=== PATIENT | male | born 1990 | race African-American/Black ===

== ENCOUNTER → 2017-06-26 | Outpatient (CLI) | payer MEDICAID, SELFPAY | PROVIDERS: Visit Provider Internal Medicine Adolescent Medicine | DX: N41.0 Acute prostatitis (principal); N52.9 Male erectile dysfunction, unspecified; K92.1 Melena | CPT/HCPCS: 36415; 80053; 81001; 82607; 84443; 85025; 87086; G0103 ==

== ENCOUNTER 2017-07-28 16:48 | Emergency (ER) | payer MEDICAID, SELFPAY ==
[2017-07-28 16:49] VITALS: BP 148/93; PULSE 84; RESP 20; TEMP 36.7; O2SAT 96; BMI 29.8
--- NOTE | 2017-07-28 16:58 | XR_ITS ---
XR chest 2V HISTORY: ITS.REASON: chest pain ORDERING PHYSICIAN: Shauna Pham MD PATIENT AGE: 27 years COMPARISON: None available FINDINGS: The cardiomediastinal silhouette and pulmonary vascularity are within normal limits. The lungs are clear without infiltrates, suspicious nodules, or pleural effusions. No acute bony abnormalities. IMPRESSION: Negative chest, no acute finding
[2017-07-28 17:15] LABS: Basophils % 0.3 % (0.1-2.0); Eosinophils # 0.1 K/mm3 (0.0-0.4); Eosinophils % 1.2 % (0.1-12.0); Hematocrit 52.1 % (42.0-52.0); Hemoglobin 17.5 g/dL (14.1-18.0); Lymphocytes # 1.7 K/mm3 (0.7-4.5); Lymphocytes % 14.7 K/mm3 (10-50); Mean Corpuscular HGB Conc 33.6 g/dL (31.8-35.4); Mean Corpuscular Hemoglobin 28.9 pg (27.0-31.2); Mean Platelet Volume 7.9 fl (7.4-10.4); Monocytes # 0.5 K/mm3 (0.1-1.0); Monocytes % 4.1 % (1.7-9.3); Neutrophils # 9.3 K/mm3 (1.8-7.8); Neutrophils % 79.8 % (37.0-80.0); Platelet Count 189 K/mm3 (142-424); Red Blood Count 6.06 M/mm3 (4.60-6.20); Red Cell Distribution Width 12.6 % (11.5-17.5); White Blood Count 11.7 K/mm3 (4.8-10.8)
--- NOTE | 2017-07-28 17:16 | HMH.EDCP ---
ED Disposition Clinical Impression: Pleurisy, Atypical chest pain Disposition: Home, Self-Care Condition on Discharge: Good Additional Instructions: Patient symptoms resolved after taking an aspirin. No more chest pain during his ED stay. I reviewed his EKG with Dr. Monk who will believe that the EKG is an early repolarization repolarization. The patient remained chest pain-free underwent a second negative troponin was discharged in stable condition with the following instructions below: 1- take daily aspirin.. 2- use additional motrin if needed. 3- stop smoking. 4- call Dr Monk for an outpatient stress test in am. 5- return if needed or for any new sx. 6- The patient verbalized understanding of the above DC plan and said he had these trademill stress tests before. - Critical Care Critical Care Time: No Attestation: On , the high probability of a clinically significant, sudden or life threatening deterioration of the following system(s) required my full and direct attention, intervention and personal management. The time I documented below is in addition to time spent performing reported procedures but includes the following listed in this critical care notation. Medical Decision Making - Medical Records Medical records reviewed: Yes: I reviewed the patient's medical records. Vital Signs: 07/28/17 16:49 07/28/17 18:49 Temperature 98.0 F 98.0 F Temperature Source Oral Oral Pulse Rate [Right Radial] 84 86 Respiratory Rate 20 20 Blood Pressure [Right Arm] 148/93 165/83 Blood Pressure Mean [Right Arm] 111 110 Blood Pressure Source [Right Arm] Automatic Cuff Automatic Cuff Blood Pressure Position [Right Arm] Sitting Sitting 02 Sat by Pulse Oximetry 96 100 Oxygen Delivery Method Room Air Room Air - Lab Data Lab Results 07/28/17 17:00: WBC 11.7 H, RBC 6.06, Hgb 17.5, Hct 52.1 H, MCV 86.0, MCH 28.9, MCHC 33.6, RDW 12.6, Plt Count 189, MPV 7.9, Neut % (Auto) 79.8, Lymph % (Auto) 14.7, Cecil % (Auto) 4.1, Eos % (Auto) 1.2, Baso % (Auto) 0.3, Neut # (Auto) 9.3 H, Lymph # (Auto) 1.7, Cecil # (Auto) 0.5, Eos # (Auto) 0.1, Baso # (Auto) 0.0 07/28/17 17:00: Sodium 140, Potassium 3.6, Chloride 104, Carbon Dioxide 29, Anion Gap 10.6, BUN 9, Creatinine 0.91, Estimated Creat Clear 175, Estimated GFR 102, Est GFR ( Amer) 123, Glucose 92, Calcium 9.1, Total Bilirubin 0.7, AST 21, ALT 36, Alkaline Phosphatase 139 H, Total Protein 7.6, Albumin 3.9, Globulin 3.7 H, Albumin/Globulin Ratio 1.1 07/28/17 17:00: Total Creatine Kinase 99, CK-MB (CK-2) < 0.5, CK-MB (CK-2) Rel Index 0.5, Troponin I < 0.02 07/28/17 17:00: D-Dimer < 100 07/28/17 17:00: B-Natriuretic Peptide 5 07/28/17 17:00: ESR 8 Result diagrams: 07/28/17 17:00 07/28/17 17:00 Orders (Tests/Meds): ED MEDICATIONS Discontinued Medications Generic Name Dose Route Start Last Admin Trade Name Melissa PRN Reason Stop Dose Admin Aspirin 324 mg 07/28/17 17:02 07/28/17 17:04 Aspirin 81mg Chewable Tablet PO 07/28/17 17:03 324 mg ONCE ONE Administration ORDERS Category Date Time Status Troponin I Stat Lab 07/28/17 19:41 Received 12-lead EKG Request [ECG Request by /Jessica] Stat Y 07/28/17 16:58 Ordered - Radiology Data #1 Image(s): Chest Image Reviewed: Yes I have reviewed radiologist's interpretation - ECG Data Tracing #1 EKG is normal sinus rhythm 85/min. Early repolarization, nonspecific ST and T-wave change, there is no acute findings on the EKG. I reviewed the EKG with the drive man Dr. Monk who agreed with the above report. ECG initial impression date: 07/28/17 - Cade Inquiry Pt receiving controlled substance: No Cade was queried for this patient: No Medical Decision Making Narrative: The patient underwent negative cardiac enzymes for myocardial infarction, he ruled out for pulmonary embolism with d-dimer. He remained stable Chest Pain HPI - General Chief Compla
--- NOTE | 2017-07-28 17:21 | ED_ITS ---
ED Disposition Clinical Impression: Pleurisy, Atypical chest pain Disposition: Home, Self-Care Condition on Discharge: Good Additional Instructions: Patient symptoms resolved after taking an aspirin. No more chest pain during his ED stay. I reviewed his EKG with Dr. Monk who will believe that the EKG is an early repolarization repolarization. The patient remained chest pain- free underwent a second negative troponin was discharged in stable condition with the following instructions below: 1- take daily aspirin.. 2- use additional motrin if needed. 3- stop smoking. 4- call Dr Monk for an outpatient stress test in am. 5- return if needed or for any new sx. 6- The patient verbalized understanding of the above DC plan and said he had these trademill stress tests before. - Critical Care Critical Care Time: No Attestation: On , the high probability of a clinically significant, sudden or life threatening deterioration of the following system(s) required my full and direct attention, intervention and personal management. The time I documented below is in addition to time spent performing reported procedures but includes the following listed in this critical care notation. Medical Decision Making - Medical Records Medical records reviewed: Yes: I reviewed the patient's medical records. Vital Signs: 07/28/17 16:49 07/28/17 18:49 Temperature 98.0 F 98.0 F Temperature Source Oral Oral Pulse Rate [Right Radial] 84 86 Respiratory Rate 20 20 Blood Pressure [Right Arm] 148/93 165/83 Blood Pressure Mean [Right Arm] 111 110 Blood Pressure Source [Right Arm] Automatic Cuff Automatic Cuff Blood Pressure Position [Right Arm] Sitting Sitting 02 Sat by Pulse Oximetry 96 100 Oxygen Delivery Method Room Air Room Air - Lab Data Lab Results 07/28/17 17:00: WBC 11.7 H, RBC 6.06, Hgb 17.5, Hct 52.1 H, MCV 86.0, MCH 28.9, MCHC 33.6, RDW 12.6, Plt Count 189, MPV 7.9, Neut % (Auto) 79.8, Lymph % (Auto) 14.7, [place] % (Auto) 4.1, Eos % (Auto) 1.2, Baso % (Auto) 0.3, Neut # (Auto) 9.3 H, Lymph # (Auto) 1.7, [place] # (Auto) 0.5, Eos # (Auto) 0.1, Baso # (Auto) 0.0 07/28/17 17:00: Sodium 140, Potassium 3.6, Chloride 104, Carbon Dioxide 29, Anion Gap 10.6, BUN 9, Creatinine 0.91, Estimated Creat Clear 175, Estimated GFR 102, Est GFR ( Amer) 123, Glucose 92, Calcium 9.1, Total Bilirubin 0.7, AST 21, ALT 36, Alkaline Phosphatase 139 H, Total Protein 7.6, Albumin 3.9 , Globulin 3.7 H, Albumin/Globulin Ratio 1.1 07/28/17 17:00: Total Creatine Kinase 99, CK-MB (CK-2) < 0.5, CK-MB (CK-2) Rel Index 0.5, Troponin I < 0.02 07/28/17 17:00: D-Dimer < 100 07/28/17 17:00: B-Natriuretic Peptide 5 07/28/17 17:00: ESR 8 Result diagrams: 07/28/17 17:00 07/28/17 17:00 Orders (Tests/Meds): ED MEDICATIONS Discontinued Medications Generic Name Dose Route Start Last Admin Trade Name Freq PRN Reason Stop Dose Admin Aspirin 324 mg 07/28/17 17:02 07/28/17 17:04 Aspirin 81mg Chewable Tablet PO 07/28/17 17:03 324 mg ONCE ONE Administration ORDERS Category Date Time Status Troponin I Stat Lab 07/28/17 19:41 Received 12-lead EKG Request [ECG Request by /Jessica] Stat Y 07/28/17 16:58 Ordered - Radiology Data #1 Image(s): Chest Image Reviewed: Yes I have reviewed radiologist's interpretation
[2017-07-28 17:28] LABS: Alanine Aminotransferase 36 U/L (12-78); Albumin Level 3.9 gm/dL (3.4-5.0); Albumin/Globulin Ratio 1.1 (1.1-1.8); Alkaline Phosphatase 139 U/L (46-116); Anion Gap 10.6 mEq/L (5-15); Aspartate Amino Transferase 21 U/L (15-37); Bilirubin,Total 0.7 mg/dL (0.2-1.0); Blood Urea Nitrogen 9 mg/dL (7-18); Calcium 9.1 mg/dL (8.5-10.1); Carbon Dioxide 29 mmol/L (21.0-32.0); Chloride 104 mmol/L (98-107); Creatinine Clearance Estimated 175 mL/min (0-300); Creatinine,Serum 0.91 mg/dL (0.70-1.30); Estimated Glomerular Filt Rate 102 ml/min (>60); GFR (African American) 123 ML/MIN (>60); Globulin 3.7 gm/dl (1.3-3.2); Glucose 92 mg/dL (74-106); Potassium 3.6 mmoL/L (3.5-5.1); Sodium 140 mmol/L (136-145); Total Protein,Serum 7.6 gm/dL (6.4-8.2)
[2017-07-28 17:34] LABS: Creatine Kinase 99 U/L (39-308); Troponin I < 0.02 ng/ml (0.00-0.06)
[2017-07-28 17:36] LABS: CKMB Relative Index 0.5 U/L (0-4.0); Creatine Kinase MB < 0.5 mg/ml (0.0-3.6)
[2017-07-28 17:49] LABS: D-Dimer < 100 (0-400)
[2017-07-28 18:19] LABS: Erythrocyte Sedimentation Rate 8 mm/hr (0-15)
[2017-07-28 18:49] VITALS: BP 165/83; PULSE 86; RESP 20; TEMP 36.7; O2SAT 100
[2017-07-28 20:05] LABS: Troponin I < 0.02 ng/ml (0.00-0.06)
== END 2017-07-28 20:20 | disposition home or self-care (01) ==
PROVIDERS: Emergency Provider Emergency Medicine; Family Provider Emergency Medicine; PCP Internal Medicine Adolescent Medicine
DX: R07.89 Other chest pain (principal); F17.290 Nicotine dependence, other tobacco product, uncomplicated
CPT/HCPCS: 71046; 80053; 82550; 82553; 83880; 84484; 85025; 85378; 85651; 93005; 93041; 99283

== ENCOUNTER 2017-08-06 09:19 | Day surgery (SDC) | payer MEDICAID, SELFPAY ==
[2017-08-06] VITALS (12 sets, daily range): BP systolic 98–126; BP diastolic 52–89; PULSE 59–75; RESP 16–18; TEMP 36.6–36.9; O2SAT 91–100; BMI 29.8
--- NOTE | 2017-08-06 11:08 | HMH.SCOPE ---
- Procedure: Date: 08/06/17 Procedure Performed:: Colonoscopy Indications:: This is a 27-year-old gentleman with recent significant weight loss and intermittent bright blood per rectum. Performing Provider:: Jasper Bangura MD Referring Provider:: Dr. Rivero Sedation:: IV sedation with 13 mg of Versed and 200 mcg of fentanyl Procedure:: After informed consent was obtained, the patient was taken to the endoscopy suite. IV sedation ensued after he was transferred to the left lateral decubitus position. Digital rectal exam revealed no significant abnormality. The colonoscope was placed in position. The entire colon was evaluated. Bowel preparation was poor with large volume irrigation and suctioning used to somewhat improve visualization. In general, visualization was exceptionally limited. No obvious mass lesions or other abnormalities were noted. He did have mild hemorrhoidal cushions with no active bleeding and no thrombosis. The colonoscope was carefully removed and the patient was transferred to recovery. Findings:: Poor bowel preparation elicitation Very mild hemorrhoidal cushions Specimens:: None Recommendations:: Further evaluation regarding weight loss ongoing. Repeat colonoscopy at age 52 (earlier if deemed necessary). Complications:: Poor bowel preparation with limited visualization Estimated blood obtained (mL): 0
== END 2017-08-06 11:50 | disposition home or self-care (01) ==
LOC: OUTP 09:21
PROVIDERS: Family Provider Emergency Medicine; PCP Internal Medicine Adolescent Medicine; Visit Provider Surgery
PROC: 0DJD8ZZ Inspection of Lower Intestinal Tract, Via Natural or Artificial Opening Endoscopic (ICD-10-PCS; CPT 45378; principal; 2017-08-06 10:00)
DX: K62.5 Hemorrhage of anus and rectum (principal); K64.9 Unspecified hemorrhoids
CPT/HCPCS: 45378; 99152; 99153

== ENCOUNTER 2017-09-26 14:25 | Emergency (ER) | payer MEDICAID, SELFPAY ==
[2017-09-26 14:42] VITALS: BP 143/84; PULSE 76; RESP 20; TEMP 36.6; O2SAT 98; BMI 29.8
--- NOTE | 2017-09-26 14:57 | HMH.EDUTC ---
[facility] [place] Disposition Clinical Impression: Hand sprain Qualifiers: Encounter type: initial encounter Laterality: right Qualified Code(s): S63.91XA - Sprain of unspecified part of right wrist and hand, initial encounter Disposition: Home, Self-Care Condition on Discharge: Good Instructions: How To Perform RICE (Rest, Ice, Compress, Elevate), DI for Hand Pain Additional Instructions: *RICE, Rest the extremity, Ice 15-20 minutes 3-4 times daily, Compress- wear the ramon wrap as discussed as much as possible to help reduce swelling and pain, Elevate the extremity when at rest *Ramon wrap is for support and help control swelling, use it except in the shower. Be sure that is not to tight but not to loose either *Elevate when resting *Ibuprofen 600-800mg every 6-8 hours as needed for pain an inflammation. If need something more can take Tylenol in between doses of Ibuprofen to help Immediately follow up for new or worsening of symptoms, or no noticeable improvement over the next 3-5 days Prescriptions: Ibuprofen [Ibuprofen 600mg Tab] 600 mg PO Q6H PRN #20 tab PRN Reason: Moderate Pain Referrals: Jamil Rivero MD [Primary Care Provider] - (24-48 hours if no improvement in symptoms) Time of Disposition: 15:22 Medical Decision Making - Medical Records Medical records reviewed: Yes: I reviewed the patient's medical records. - Cade Inquiry Pt receiving controlled substance: No Cade was queried for this patient: No Vital Signs: 09/26/17 14:42 Temperature 97.9 F Temperature Source Oral Pulse Rate [Right Brachial] 76 Respiratory Rate 20 Blood Pressure [Right Arm] 143/84 Blood Pressure Mean [Right Arm] 103 Blood Pressure Source [Right Arm] Automatic Cuff Blood Pressure Position [Right Arm] Sitting 02 Sat by Pulse Oximetry 98 Oxygen Delivery Method Room Air Orders (Tests/Meds): ORDERS Category Date Time Status Hand XR right minimum 3 views [XR hand RT min 3V] Stat Exams 09/26/17 14:59 Ordered - Radiology Data #1 Image(s): Hand Image Reviewed: Yes I reviewed the patient's radiology image Preliminary Findings: No Fracture Seen Will have radiologist do official reading and if any different, call patient with finding [facility] [place] HPI - General Stated complaint: right hand pain Time Seen by Provider: 09/26/17 14:50 Mode of Arrival: Family Vehicle Source of Information: Patient Limitations: No Limitations Description of Symptoms (Recalled from Triage Doc. by RN): C/O PAIN IN RIGHT HAND X 3 DAYS FROM PREVIOUS INJURY HEENT Symptoms (Recalled from RN notes): No Resp Symptoms (Recalled from RN notes): No Skin Symptoms (Recalled from RN notes): No MS Symptoms (Recalled from RN notes): Yes Functional Status (Recalled from RN notes): N/A - History of Present Illness Provider Complaint: Patient state that he is suppose to have surgery on his right hand to repair damage that he previously done State that he doesn't recall hitting hand but about 3 days ago he began to have pain in his right hand just below wrist along the outside of hand up to pinky finger State that he is able to move it but when he applies pressure to the palm of his hand the pain is worse Denies known injury - Related Data Previous Rx's Medication Instructions Recorded Ibuprofen [Ibuprofen 600mg Tab] 600 mg PO Q6H PRN #20 tab 09/26/17 Allergies Allergy/AdvReac Type Severity Reaction Status Date / Time No Known Allergies Allergy Verified 08/19/17 14:10 - Worker's Comp Is this a Worker's Comp case?: No [facility] History I have reviewed the patient's past medical history: Yes Medical History: Reports:: Hypertension, Lung Disease Denies:: Diabetes Mellitus Type 1, Diabetes Mellitus Type 2, Internal Pacemaker, Seizures Other Surgeries: Yes: Cardiac Catheterization, Colonoscopy, Other (Heart Cath ). No: Pacemaker - Social History Smoking Status: Current every day smoker Tobacco Type: cigarettes Alcohol Intake: never Alcohol Intake Freq
--- NOTE | 2017-09-26 14:59 | XR_ITS ---
XR hand RT min 3V HISTORY: ITS.REASON: pain ORDERING PHYSICIAN: Elizabet Hernandes PATIENT AGE: 27 years COMPARISON: None FINDINGS: No fracture or dislocation. No lytic or blastic change. There is normal mineralization.. The joint spaces are well-preserved. No significant degenerative/arthritic changes. No erosive changes evident.. IMPRESSION: Negative, no acute finding
--- NOTE | 2017-09-26 15:02 | ED_ITS ---
[facility] [place] Clinical Impression: Hand sprain Qualifiers: Encounter type: initial encounter Laterality: right Qualified Code(s): S63.91XA - Sprain of unspecified part of right wrist and hand, initial encounter Disposition: Home, Self-Care Condition on Discharge: Good Instructions: How To Perform RICE (Rest, Ice, Compress, Elevate), DI for Hand Pain Additional Instructions: *RICE, Rest the extremity, Ice 15-20 minutes 3-4 times daily, Compress- wear the ramon wrap as discussed as much as possible to help reduce swelling and pain, Elevate the extremity when at rest *Ramon wrap is for support and help control swelling, use it except in the shower. Be sure that is not to tight but not to loose either *Elevate when resting *Ibuprofen 600-800mg every 6-8 hours as needed for pain an inflammation. If need something more can take Tylenol in between doses of Ibuprofen to help Immediately follow up for new or worsening of symptoms, or no noticeable improvement over the next 3-5 days Prescriptions: Ibuprofen [Ibuprofen 600mg Tab] 600 mg PO Q6H PRN #20 tab PRN Reason: Moderate Pain Referrals: Jamil Rivero MD [Primary Care Provider] - (24-48 hours if no improvement in symptoms) Time of Disposition: 15:22 Medical Decision Making - Medical Records Medical records reviewed: Yes: I reviewed the patient's medical records. - Cade Inquiry Pt receiving controlled substance: No Cade was queried for this patient: No Vital Signs: 09/26/17 14:42 Temperature 97.9 F Temperature Source Oral Pulse Rate [Right Brachial] 76 Respiratory Rate 20 Blood Pressure [Right Arm] 143/84 Blood Pressure Mean [Right Arm] 103 Blood Pressure Source [Right Arm] Automatic Cuff Blood Pressure Position [Right Arm] Sitting 02 Sat by Pulse Oximetry 98 Oxygen Delivery Method Room Air Orders (Tests/Meds): ORDERS Category Date Time Status Hand XR right minimum 3 views [XR hand RT min 3V] Stat Exams 09/26/17 14:59 Ordered - Radiology Data #1 Image(s): Hand Image Reviewed: Yes I reviewed the patient's radiology image Preliminary Findings: No Fracture Seen Will have radiologist do official reading and if any different, call patient with finding [facility] [place] - General Stated complaint: right hand pain Time Seen by Provider: 09/26/17 14:50 Mode of Arrival: Family Vehicle Source of Information: Patient Limitations: No Limitations Description of Symptoms (Recalled from Triage Doc. by RN): C/O PAIN IN RIGHT HAND X 3 DAYS FROM PREVIOUS INJURY HEENT Symptoms (Recalled from RN notes): No Resp Symptoms (Recalled from RN notes): No Skin Symptoms (Recalled from RN notes): No MS Symptoms (Recalled from RN notes): Yes Functional Status (Recalled from RN notes): N/A - History of Present Illness Provider Complaint: Patient state that he is suppose to have surgery on his right hand to repair damage that he previously done State that he doesn't recall hitting hand but about 3 days ago he began to have pain in his right hand just below wrist along the outside of hand up to pinky finger State that he is able to move it but when he applies pressure to the palm of his hand the pain is worse Denies known injury - Related Data Previous Rx's Medication Instructions Recorded Ibuprofen [Ibuprofen 600mg Tab] 600 mg PO Q6H PRN #20 tab 09/26/17 Allergies Allergy/AdvReac Type Severity React
[2017-09-26 15:26] VITALS: BP 142/80; PULSE 78; RESP 20; TEMP 36.6; O2SAT 98
== END 2017-09-26 15:27 | disposition home or self-care (01) ==
PROVIDERS: Emergency Provider Nurse Practitioner; Family Provider Emergency Medicine; PCP Internal Medicine Adolescent Medicine
DX: S63.91XA Sprain of unspecified part of right wrist and hand, initial encounter (principal)
CPT/HCPCS: 73130; 99201

== ENCOUNTER → 2018-09-02 09:52 | Outpatient (CLI) | payer MEDICAID, SELFPAY ==
--- NOTE | 2018-09-02 | XR_ITS ---
XR wrist LT min 3V HISTORY ITS.REASON: BILATERAL WRIST PAIN, ARTHRALGIA AND SWELLING MULTIPLE JOINT ORDERING PHYSICIAN: Paola Morley PATIENT AGE: 28 years Comparison: None FINDINGS: No fracture or dislocation. No lytic or blastic change. There is normal mineralization.. The joint spaces are well-preserved. No significant degenerative/arthritic changes. No erosive changes evident.. IMPRESSION: Negative wrist
--- NOTE | 2018-09-02 | XR_ITS ---
XR hand LT min 3V HISTORY: ITS.REASON: BILATERAL HAND PAIN, ARTHRALGIA AND SWELLING MULTIPLE JOINTS ORDERING PHYSICIAN: Paola Morley PATIENT AGE: 28 years COMPARISON: None FINDINGS: No fracture or dislocation. No lytic or blastic change. There is normal mineralization.. The joint spaces are well-preserved. No significant degenerative/arthritic changes. No erosive changes evident.. IMPRESSION: Negative left hand
--- NOTE | 2018-09-02 | XR_ITS ---
XR hand RT min 3V HISTORY: ITS.REASON: BILATERAL HAND PAIN, ARTHRALGIA AND SWELLING MULTIPLE JOINTS ORDERING PHYSICIAN: Paola Morley PATIENT AGE: 28 years COMPARISON: None FINDINGS: No fracture or dislocation. No lytic or blastic change. There is normal mineralization.. The joint spaces are well-preserved. No significant degenerative/arthritic changes. No erosive changes evident.. IMPRESSION: Negative right hand
--- NOTE | 2018-09-02 | XR_ITS ---
XR wrist RT min 3V HISTORY ITS.REASON: BILATERAL WRIST PAIN, ARTHRALGIA AND SWELLING MULTIPLE JOINT ORDERING PHYSICIAN: Paola Morley PATIENT AGE: 28 years Comparison: None FINDINGS: No fracture or dislocation. No lytic or blastic change. There is normal mineralization.. The joint spaces are well-preserved. No significant degenerative/arthritic changes. No erosive changes evident.. IMPRESSION: Negative wrist
[2018-09-02 10:12] LABS: Basophils % 0.3 % (0.1-2.0); Eosinophils # 0.2 K/mm3 (0.0-0.4); Hematocrit 47.3 % (42.0-52.0); Hemoglobin 15.9 g/dL (14.1-18.0); Lymphocytes # 2.4 K/mm3 (0.7-4.5); Lymphocytes % 29.9 % (10-50); Mean Corpuscular HGB Conc 33.5 g/dL (31.8-35.4); Mean Corpuscular Hemoglobin 29.5 pg (27.0-31.2); Mean Corpuscular Volume 87.9 fl (80-94); Monocytes # 0.5 K/mm3 (0.1-1.0); Monocytes % 6.4 % (1.7-9.3); Neutrophils # 4.9 K/mm3 (1.8-7.8); Neutrophils % 60.5 % (37.0-80.0); Platelet Count 206 K/mm3 (142-424); Red Blood Count 5.38 M/mm3 (4.60-6.20); Red Cell Distribution Width 13.1 % (11.5-17.5); White Blood Count 8.1 K/mm3 (4.8-10.8)
[2018-09-02 10:47] LABS: Alanine Aminotransferase 35 U/L (12-78); Albumin Level 4.2 gm/dL (3.4-5.0); Albumin/Globulin Ratio 1.4 (1.1-1.8); Alkaline Phosphatase 131 U/L (46-116); Anion Gap 11.4 mEq/L (5-15); Aspartate Amino Transferase 22 U/L (15-37); Bilirubin,Total 0.4 mg/dL (0.2-1.0); Blood Urea Nitrogen 20 mg/dL (7-18); Calcium 9.3 mg/dL (8.5-10.1); Carbon Dioxide 31 mmol/L (21.0-32.0); Chloride 105 mmol/L (98-107); Creatinine,Serum 1.03 mg/dL (0.70-1.30); Estimated Glomerular Filt Rate 87 ml/min (>60); GFR (African American) 106 ML/MIN (>60); Globulin 3.1 gm/dl (1.3-3.2); Glucose 74 mg/dL (74-106); Potassium 4.4 mmoL/L (3.5-5.1); Sodium 143 mmol/L (136-145); Thyroid Stimulating Hormone 1.91 uIU/ml (0.358-3.740); Total Protein,Serum 7.3 gm/dL (6.4-8.2)
[2018-09-02 11:07] LABS: C-Reactive Protein < 0.2 mg/L (0.0-0.9)
[2018-09-03 15:17] LABS: Anti-Centromere B Antibodies <0.2 AI (0.0-0.9); Anti-Jo-1 <0.2 AI (0.0-0.9); Anti-Smith Antibody <0.2 AI (0.0-0.9); Antichromatin Antibodies <0.2 AI (0.0-0.9); Antiscleroderma-70 Antibodies <0.2 AI (0.0-0.9); RNP Antibodies <0.2 AI (0.0-0.9); Sjogren's Anti-SS-A <0.2 AI (0.0-0.9); Sjogren's Anti-SS-B 0.2 AI (0.0-0.9)
[2018-09-03 15:42] LABS: Erythrocyte Sedimentation Rate 9 mm/hr (0-15)
[2018-09-03 17:40] LABS: Anti-DNA (DS) Ab Qn 1 IU/mL (0-9)
== END ==
PROVIDERS: PCP Internal Medicine Adolescent Medicine; Visit Provider Nurse Practitioner Family
DX: Z00.00 Encounter for general adult medical examination without abnormal findings (principal); M25.40 Effusion, unspecified joint; M25.50 Pain in unspecified joint; M79.641 Pain in right hand; M79.642 Pain in left hand; M25.531 Pain in right wrist
CPT/HCPCS: 36415; 73110; 73130; 80053; 84443; 85025; 85651; 86140; 86225; 86235

== ENCOUNTER → 2019-02-23 09:18 | Outpatient (CLI) | payer MEDICAID, SELFPAY ==
[2019-02-23 11:01] LABS: Alanine Aminotransferase 48 U/L (12-78); Albumin Level 4.2 gm/dL (3.4-5.0); Albumin/Globulin Ratio 1.3 (1.1-1.8); Alkaline Phosphatase 120 U/L (46-116); Anion Gap 10.4 mEq/L (5-15); Aspartate Amino Transferase 30 U/L (15-37); Bilirubin,Total 0.6 mg/dL (0.2-1.0); Blood Urea Nitrogen 12 mg/dL (7-18); Calcium 9.4 mg/dL (8.5-10.1); Carbon Dioxide 31 mmol/L (21.0-32.0); Chloride 105 mmol/L (98-107); Creatinine,Serum 1.05 mg/dL (0.70-1.30); Estimated Glomerular Filt Rate 85 ml/min (>60); GFR (African American) 103 ML/MIN (>60); Globulin 3.3 gm/dl (1.3-3.2); Glucose 80 mg/dL (74-106); Potassium 4.4 mmoL/L (3.5-5.1); Sodium 142 mmol/L (136-145); Total Protein,Serum 7.5 gm/dL (6.4-8.2)
== END ==
PROVIDERS: Visit Provider Internal Medicine Adolescent Medicine
DX: B35.1 Tinea unguium (principal)
CPT/HCPCS: 36415; 80053

== ENCOUNTER → 2021-01-18 12:14 | Outpatient (CLI) | payer OTHER, SELFPAY ==
[2021-01-19 11:25] LABS: PSA, Free 0.16 ng/mL; Prostate Specific Ag 0.5 ng/mL (0.0-4.0)
== END ==
PROVIDERS: Visit Provider Internal Medicine Adolescent Medicine
DX: Z80.42 Family history of malignant neoplasm of prostate (principal)
CPT/HCPCS: 36415; 84153; 84154

== ENCOUNTER 2021-05-23 09:53 | Emergency (ER) | payer OTHER, SELFPAY ==
--- NOTE | 2021-05-23 10:51 | XR_ITS ---
PROCEDURE: XR HAND LT MIN 3V CLINICAL INDICATION: PAIN IN PINKY COMPARISON: CR [id number] XR hand RT min 3V from 09/26/2017 CR [id number] XR hand RT min 3V from 08/24/2018 CR [id number] XR hand RT min 3V from 09/02/2018 CR [id number] XR hand LT min 3V from 09/02/2018 FINDINGS: No fracture or dislocation. No lytic or blastic change. There is normal mineralization. The joint spaces are well-preserved. No significant degenerative/arthritic changes. No erosive changes evident. Other findings:None. IMPRESSION: No acute findings. Dictated by: Fredrick Mckee MD 05/23/2021 12:34 Fredrick Mckee MD in [place] 05/23/2021 12:34
[2021-05-23 11:20] VITALS: BP 119/76; PULSE 68; RESP 18; TEMP 36.8; O2SAT 98; BMI 35.2
[2021-05-23 11:49] VITALS: BP 119/76; PULSE 68; RESP 18; TEMP 36.8; O2SAT 98
--- NOTE | 2021-05-23 11:59 | HMH.EDUTC ---
[facility] [place] Clinical Impression: Hand pain, left Disposition: Home, Self-Care Condition on Discharge: Good Instructions: DI for Hand Injury, DI for Hand Pain Additional Instructions: *RICE, Rest the extremity, Ice 15-20 minutes 3-4 times daily, Compress- wear the ramon wrap as discussed as much as possible to help reduce swelling and pain, Elevate the extremity when at rest *Ramon wrap/Splint is for support and help control swelling, use it except in the shower. Be sure that is not to tight but not to loose either *Elevate when resting *Ibuprofen as directed on package every 6-8 hours as needed for pain an inflammation. If need something more can take Tylenol in between doses of Ibuprofen to help Immediately follow up with your family doctor for new or worsening of symptoms, or no noticeable improvement over the next 3-5 days Follow with your Family Doctor if no improvement or any worsening of injury Follow up with ORthopedics if needed Return if needed Referrals: Giovanny Leong MD [Primary Care Provider] - As needed Calderon Barnhart MD [Staff Physician] - Time of Disposition: 12:34 Medical Decision Making - Cade Inquiry Pt receiving controlled substance: No Cade was queried for this patient: No Vital Signs: 05/23/21 11:20 05/23/21 11:49 Temperature 98.3 F 98.3 F Temperature Source Oral Pulse Rate 68 Pulse Rate [Right Brachial] 68 Respiratory Rate 18 18 Blood Pressure 119/76 Blood Pressure [Right Arm] 119/76 Blood Pressure Mean [Right Arm] 90 Blood Pressure Source [Right Arm] Automatic Cuff Blood Pressure Position [Right Arm] Sitting 02 Sat by Pulse Oximetry 98 Oxygen Delivery Method Room Air - Radiology Data #1 Image(s): Hand Image Reviewed: Yes I reviewed the patient's radiology image Preliminary Findings: No Fracture Seen [facility] [place] HPI - General Stated complaint: left pinky pain, no accident Time Seen by Provider: 05/23/21 11:59 Mode of Arrival: Ambulatory Source of Information: Patient Limitations: No Limitations Description of Symptoms (Recalled from Triage Doc. by RN): PATIENT C/O PAIN AND SWELLING TO LEFT PINKY FINGER X 1.5 WEEKS. STATES HE WAS SHADOW BOXING AND PINKY HIT THE FLOOR HEENT Symptoms (Recalled from RN notes): No Resp Symptoms (Recalled from RN notes): No Skin Symptoms (Recalled from RN notes): No MS Symptoms (Recalled from RN notes): Yes Functional Status (Recalled from RN notes): WNL - History of Present Illness Provider Complaint: Patient states that he was sparing a few weeks ago and hit his left knuckly area on another persons head and had some pain and mild swelling State that then last week he was shadow boxing and his misjudged how far away from the wall he was and he accidently hit the wall again with his left hand on the knucle of his little finger State that now he has pain when he bends and moves it - Related Data Allergies Allergy/AdvReac Type Severity Reaction Status Date / Time No Known Allergies Allergy Verified 12/26/17 11:48 - Worker's Comp Is this a Worker's Comp case?: No [facility] History - Hepatitis A Screen Drug use history?: No High risk sexual behaviors?: No History of sexually transmitted infection?: No Currently employed?: No Childcare worker?: No Do you have indoor plumbing?: Yes Do you have electricity?: Yes Attestation statement:: This patient has been screened for Hepatitis A risk factors. I have reviewed the patient's past medical history: Yes Medical History: Reports:: Hypertension, Lung Disease Denies:: Cancer, Diabetes Mellitus Type 1, Diabetes Mellitus Type 2, Internal Pacemaker, MRSA, Seizures Laterality Cases: Left: ACL Repair Other Surgeries: Yes: Cardiac Catheterization, Colonoscopy, Other (Heart Cath ). No: Pacemaker Amputation: No Fractures: No - Social History Smoking Status: Current every day smoker Tobacco Type: cigarettes # Packs/Day (cigarettes): 1 Alcohol Intake: never Alcohol Intake Frequency::
== END 2021-05-23 12:48 | disposition home or self-care (01) ==
PROVIDERS: Emergency Provider Nurse Practitioner; PCP Internal Medicine Adolescent Medicine
DX: S60.222A Contusion of left hand, initial encounter (principal); W22.01XA Walked into wall, initial encounter; I10 Essential (primary) hypertension; F17.210 Nicotine dependence, cigarettes, uncomplicated
CPT/HCPCS: 29125; 73130; 99203; G0463

== ENCOUNTER 2021-09-25 19:47 | Emergency (ER) | payer OTHER, SELFPAY ==
[2021-09-25 20:20] VITALS: BP 139/76; PULSE 86; RESP 20; TEMP 37.3; O2SAT 96; BMI 35.6
--- NOTE | 2021-09-25 20:33 | HMH.EDUTC ---
[facility] [place] Disposition Clinical Impression: Nausea vomiting and diarrhea Disposition: Home, Self-Care Condition on Discharge: Good Instructions: Nausea and Vomiting-Adult, Diarrhea, DI for Viral Gastroenteritis -- Adult Additional Instructions: Drink extra fluids with and between meals. If you have difficulty drinking, try very small amounts of water or suck on ice chips. ? Avoid fruit juices, as these do not replace minerals and can actually increase diarrhea. ? Children and adults can use sports drinks to replenish electrolytes. Younger children and infants should use products formulated for children, like oral rehydration solutions. ? Eat food in small amounts and let your stomach recover. ? Get lots of rest. You may feel tired or weak. ? No greasy or fried foods for the next 24-48 hours BRAT diet Bananas Rice Apples and Vesta ? Make sure to drink plenty of liquids ? Return if needed ? Straight to ER if any life threatening symptoms ? You was given an outpatient order for diarrhea panel, please collect specimen and bring back to outpatient lab then call back to the [facility] or follow up with family doctor for results ? Follow up with family doctor in the next 48-72 hours if no improvement or any worsening of symptoms Phenergan as prescribed Referrals: Giovanny Leong MD [Primary Care Provider] - As needed Forms: Work/School Release Medical Decision Making - Cade Inquiry Pt receiving controlled substance: No Cade was queried for this patient: No Vital Signs: 09/25/21 20:20 Temperature 99.2 F Temperature Source Oral Pulse Rate [Left] 86 Respiratory Rate 20 Blood Pressure [Right Arm] 139/76 Blood Pressure Mean [Right Arm] 97 02 Sat by Pulse Oximetry 96 [facility] [place] HPI - General Stated complaint: stomach bug,V&D Body aches Time Seen by Provider: 09/25/21 20:33 Mode of Arrival: Ambulatory Source of Information: Patient Limitations: No Limitations Description of Symptoms (Recalled from Triage Doc. by RN): pt c/o n/v/d, cold sweats and body aches since this am. HEENT Symptoms (Recalled from RN notes): Yes Resp Symptoms (Recalled from RN notes): No Skin Symptoms (Recalled from RN notes): No MS Symptoms (Recalled from RN notes): No Functional Status (Recalled from RN notes): wnl - History of Present Illness Provider Complaint: Patient states that he woke up this morning with N/V/D States that daughter recently had the stomach bug and he thinks he may have it now Statse that he took Zofran this morning but didnt help States that he has been unable to keep anything down today besides water so tonight he came in to get checked and get something for N/V - Related Data Allergies Allergy/AdvReac Type Severity Reaction Status Date / Time No Known Allergies Allergy Verified 12/26/17 11:48 - Worker's Comp Is this a Worker's Comp case?: No [facility] History - Hepatitis A Screen Drug use history?: No High risk sexual behaviors?: No History of sexually transmitted infection?: No Currently employed?: No Childcare worker?: No Do you have indoor plumbing?: Yes Do you have electricity?: Yes Attestation statement:: This patient has been screened for Hepatitis A risk factors. I have reviewed the patient's past medical history: Yes Medical History: Reports:: Hypertension, Lung Disease Denies:: Cancer, Diabetes Mellitus Type 1, Diabetes Mellitus Type 2, Internal Pacemaker, MRSA, Seizures Laterality Cases: Left: ACL Repair Other Surgeries: Yes: Cardiac Catheterization, Colonoscopy, Other (Heart Cath ). No: Pacemaker Amputation: No Fractures: No - Social History Smoking Status: Current every day smoker Tobacco Type: cigarettes # Packs/Day (cigarettes): 1 Alcohol Intake: never Alcohol Intake Frequency:: other Substance Use Type: denies use Occupational Status: employed Housing: house Household Members: spouse Family Hx:: No significant family history ROS Obtained: Yes All systems reviewed & no additional complaints, Yes Sys
[2021-09-25 21:11] VITALS: BP 0/0; PULSE 0; RESP 0; TEMP -17.7; TEMP 0
== END 2021-09-25 21:12 | disposition home or self-care (01) ==
PROVIDERS: Emergency Provider Nurse Practitioner; PCP Internal Medicine Adolescent Medicine
DX: R11.2 Nausea with vomiting, unspecified (principal); R19.7 Diarrhea, unspecified; I10 Essential (primary) hypertension; F17.210 Nicotine dependence, cigarettes, uncomplicated
CPT/HCPCS: 99212; G0463

== ENCOUNTER 2021-10-10 17:13 | Emergency (ER) | payer OTHER, SELFPAY ==
[2021-10-10 17:20] VITALS: BP 126/82; PULSE 71; RESP 18; TEMP 36.8; O2SAT 98; BMI 33.6
[2021-10-10 17:36] LABS: UTC Influenza A Antigen Positive (Negative); UTC Influenza B Antigen Negative (Negative)
[2021-10-10 17:40] VITALS: BP 126/82; PULSE 71; RESP 18; TEMP 36.8; O2SAT 98
--- NOTE | 2021-10-10 17:43 | HMH.EDUTC ---
[facility] [place] Clinical Impression: Influenza Disposition: Home, Self-Care Condition on Discharge: Good Instructions: How to Avoid a Cold or Flu, Influenza, DI for Influenza -- Adult Additional Instructions: ? Lots of rest ? Increase Fluids water, Gatorade, powerade, pedialyte,if /toddler/child ? Alternate Tylenol and / or ibuprofen as discussed for fever, aches, chills Follow up IMMEDIATELY with your family doctor for new or worsening Symptoms OR no noticeable improvement over the next 48-72 hours, 911 for difficulty or breathing ? You or your child area contagious until no fever, aches, chills for 24 hours with medication for symptoms ? Help Prevent the spread of influenza: ? Wash your hands often. Use soap and water. Wash your hands after you use the bathroom, change a child's diapers, or sneeze. Wash your hands before you prepare or eat food. Use gel hand cleanser that has 60% alcohol, when soap and water are not available. Do not touch your eyes, nose, or mouth unless you have washed your hands first. ? Cover your mouth when you sneeze or cough. Cough into a tissue or the bend of your arm. If you use a tissue, throw it away immediately and wash your hands. ? Clean shared items with a germ-killing water filter cleaner. Clean table surfaces, doorknobs, and light switches. Do not share towels, silverware, and dishes with people who are sick. Wash bed sheets, towels, silverware, and dishes with soap and water. ? Wear a mask over your mouth and nose if you are sick. The face mask may help protect others from becoming infected with the flu. Wear the mask when in common areas of your home or if you seek care with a healthcare provider. ? Stay away from others if you are sick. Stay at home until 24 hours after your fever and symptoms are gone. Prescriptions: Brompheniramine/Pseudoephed/Dm [Bromfed Dm Cough Syrup] 5 - 10 ml PO Q4-6H PRN #200 ml PRN Reason: Cough Transmission Status: Pending to [facility] #[id number] Referrals: Giovanny Leong MD [Primary Care Provider] - As needed Forms: Work/School Release Time of Disposition: 17:48 Medical Decision Making - Cade Inquiry Pt receiving controlled substance: No Cade was queried for this patient: No Vital Signs: 10/10/21 17:20 10/10/21 17:40 Temperature 98.2 F 98.2 F Temperature Source Oral Pulse Rate 71 Pulse Rate [Right Brachial] 71 Respiratory Rate 18 18 Blood Pressure 126/82 Blood Pressure [Right Arm] 126/82 Blood Pressure Mean [Right Arm] 96 Blood Pressure Source [Right Arm] Automatic Cuff Blood Pressure Position [Right Arm] Sitting 02 Sat by Pulse Oximetry 98 Oxygen Delivery Method Room Air - Lab Data Lab results reviewed: Yes: I reviewed the patient's lab results. Lab Results 10/10/21 17:28: Influenza Type A Ag Positive A, Influenza Type B Ag Negative [facility] - General Stated complaint: body aches and cold sweats Time Seen by Provider: 10/10/21 17:43 Mode of Arrival: Ambulatory Source of Information: Patient Limitations: No Limitations Description of Symptoms (Recalled from Triage Doc. by RN): PATIENT C/O BODY ACHES, SWEATS, AND DRY COUGH SINCE THURSDAY HEENT Symptoms (Recalled from RN notes): No Resp Symptoms (Recalled from RN notes): Yes Skin Symptoms (Recalled from RN notes): No MS Symptoms (Recalled from RN notes): No Functional Status (Recalled from RN notes): wnl - History of Present Illness Provider Complaint: Patient states that he has not felt well for a couple of days States that he has been having body aches, chills, cough and headache States that today he was still feeling achy so he came in to get checked - Related Data Previous Rx's Medication Instructions Recorded Brompheniramine/Pseudoephed/Dm 5 - 10 ml PO Q4-6H PRN #200 ml 10/10/21 [Bromfed Dm Cough Syrup] Allergies Allergy/AdvReac Type Severity Reaction Status Date / Time No Known Allergies Allergy Verified 12/26/17 11:48 - Worker's Comp Is
== END 2021-10-10 17:53 | disposition home or self-care (01) ==
PROVIDERS: Emergency Provider Nurse Practitioner; PCP Internal Medicine Adolescent Medicine
DX: J10.1 Influenza due to other identified influenza virus with other respiratory manifestations (principal); I10 Essential (primary) hypertension; F17.210 Nicotine dependence, cigarettes, uncomplicated
CPT/HCPCS: 87804; 99212; G0463

== ENCOUNTER 2022-07-10 08:11 | Emergency (ER) | payer OTHER, SELFPAY ==
[2022-07-10 08:45] VITALS: BP 138/93; PULSE 90; RESP 19; TEMP 36.6; O2SAT 93; BMI 35.5
--- NOTE | 2022-07-10 08:46 | EXP.UTC ---
Discharge Plan Disposition Patient Disposition: Home, Self-Care Condition: Good Prescriptions Prescriptions: New benzonatate [benzonatate] 100 mg capsule 100 mg PO TIDP PRN (Reason: Cough) Qty: 30 0RF methylprednisolone 4 mg Tablets,Dose Pack 4 mg PO DIRECTED Qty: 21 0RF amoxicillin-pot clavulanate 875-125 mg Tablet 1 tab PO Q12H Qty: 20 0RF Referrals Follow up/Referrals: Kary Cabrear PA [Primary Care Provider] - See instructions Activity Restrictions/Add. Instructions Additional Instructions/Restrictions: Drink plenty of fluids. Take tylenol or ibuprofen for pain or fever. Take the medications as directed. Follow up with your regular doctor. GO TO THE ER FOR ANY WORSENING SYMPTOMS Throw your tooth brush away and get a new one. Clinical Impressions Clinical Impression: Strep throat Instructions Patient Instructions: Strep Throat, DI for Strep Throat Discharge ED Provider: Giovanny Pena [facility] General Stated complaint: sore throat Time Seen by Provider: 07/10/22 08:46 History of Present Illness Provider Complaint: He states that for the past 2 days he has had a worsening sore throat, low grade fever and chills. He was exposed strep throat around 1 week ago. Related Data Previous Rx's Medication Instructions Recorded amoxicillin 875 mg-potassium 1 tab PO Q12H #20 tabs 07/10/22 clavulanate 125 mg tablet benzonatate 100 mg capsule 100 mg PO TIDP PRN Cough #30 caps 07/10/22 methylprednisolone 4 mg tablets in 4 mg PO DIRECTED #21 tabs 07/10/22 a dose pack Allergies Allergy/AdvReac Type Severity Reaction Status Date / Time No Known Allergies Allergy Verified 07/10/22 09:04 [facility] Disclaimer: The information contained in this section may have been updated after the patient was seen, as this information can be updated by other users. Social History Smoking Status: Current every day smoker tobacco type: cigarettes packs per day: 1 second hand exposure: Yes alcohol intake: never counseling provided: provider counseling substance use type: denies use current occupational status: employed Travel in the last 8 weeks: None household members: spouse housing: house caffeine: No ROS Obtained: Yes All systems reviewed & no additional complaints except as documented Constitutional Constitutional: Reports chills and Reports fever(s) Eyes Eyes: Denies eye discharge ENT Ears, Nose, Mouth, and Throat: Reports as per HPI Cardiovascular Cardiovascular: Denies chest pain Respiratory Respiratory: Denies chest congestion and Reports cough Gastrointestinal Gastrointestingal: Reports nausea; Denies abdominal pain, constipation, cramping, diarrhea or vomiting Musculoskeletal Musculoskeletal: Denies arthralgias Integumentary/Breasts Skin/Breast: Denies rash Neurologic Neurologic: Denies paresthesias Physical Exam General General appearance: alert and in no apparent distress Head Head exam: atraumatic, normocephalic and normal inspection Eye Eye exam: Present normal appearance, PERRL and EOMI ENT ENT exam: Present mucous membranes moist and normal external ear exam Expanded ENT Exam TM/Canal exam: Bilateral TM: erythema and bulging Nose exam: Absent sinus tenderness Mouth exam: Present normal external inspection; Absent drooling Teeth exam: Present normal inspection Throat exam: Present tonsillar erythema, tonsillomegaly and tonsillar exudate Neck Neck exam: Present normal inspection, full ROM and trachea midline; Absent tenderness, meningismus or lymphadenopathy Chest Chest inspection: Present normal inspection and symmetric chest wall rise; Absent tenderness Respiratory Respiratory exam: Present normal lung sounds bilaterally; Absent respiratory distress, wheezes or stridor Cardiovascular Cardiovascular exam: Present regular rate and normal rhythm; Absent systolic murmur or
[2022-07-10 09:10] LABS: UTC Strep Screen (Rapid) Positive (Negative)
[2022-07-10 09:15] VITALS: BP 138/93; PULSE 90; RESP 19; TEMP 36.6; O2SAT 93
== END 2022-07-10 09:15 | disposition home or self-care (01) ==
PROVIDERS: Emergency Provider Nurse Practitioner Family; PCP Physician Assistant
DX: J02.0 Streptococcal pharyngitis (principal)
CPT/HCPCS: 87880; 99212; 99213; G0463

== ENCOUNTER 2023-01-14 12:18 | Emergency (ER) | payer OTHER, SELFPAY ==
[2023-01-14 12:30] VITALS: BP 133/68; PULSE 82; RESP 18; TEMP 36.9; O2SAT 98; BMI 35.1
--- NOTE | 2023-01-14 12:46 | EXP.UTC ---
Discharge Plan Disposition Patient Disposition: Home, Self-Care Condition: Good Prescriptions Prescriptions: New ibuprofen 600 mg tablet 600 mg PO Q6HP PRN (Reason: Moderate Pain) Qty: 20 0RF methocarbamol 500 mg tablet 500 mg PO TID PRN (Reason: muscle spasm) Qty: 10 0RF Referrals Follow up/Referrals: Paola Majano APRN [Primary Care Provider] - See instructions Activity Restrictions/Add. Instructions Additional Instructions/Restrictions: *Ibuprofen greyson 6 hours with meal as needed for pain/inflammation *Not additional anti-inflammatory like motrin, aleve, advil with the above amount of ibuprofen. You can still take Tylenol every 4 hours as needed if you need something else for pain *Ice 20 minutes every 2 hours for the first 48 hours after the initial injury followed by moist heat every 20 minutes 3-4 times a day to affected area *Muscle relaxer every 8 hours as needed for muscle spasms but remember, it WILL cause drowsiness You cannot take it and drive, operate machinery or care for small children. *Keep this area active, no movement leads to more stiffness, However take it easy and avoid heavy lifting pushing or pulling *Follow up with you family doctor if no improvement for further treatment Clinical Impressions Clinical Impression: Muscle strain Instructions Patient Instructions: DI for Muscle Spasm, DI for Muscle Strain Discharge ED Provider: Elizabet Hernandes [facility] General Stated complaint: Pain in back when breathing Mode of Arrival: Ambulatory Source of Information: Patient Limitations: No Limitations Time Seen by Provider: 01/14/23 12:46 Description of Symptoms (Recalled from Triage Doc. by RN): PATIENT C/O UPPER MIDDLE BACK PAIN SINCE YESTERDAY HEENT Symptoms (Recalled from RN notes): No Resp Symptoms (Recalled from RN notes): No Skin Symptoms (Recalled from RN notes): No MS Symptoms (Recalled from RN notes): Yes Functional Status (Recalled from RN notes): WNL History of Present Illness Provider Complaint: Patient states that he was at work yesterday lifting parts and felt a pull in his upper back/shoulder area States that feels like it is tight like he is having muscle spasms and was not able to go to work today Related Data Previous Rx's Medication Instructions Recorded ibuprofen 600 mg tablet 600 mg PO Q6HP PRN Moderate Pain 01/14/23 #20 tabs methocarbamol 500 mg tablet 500 mg PO TID PRN muscle spasm #10 01/14/23 tabs Allergies Allergy/AdvReac Type Severity Reaction Status Date / Time No Known Allergies Allergy Verified 07/10/22 09:04 Worker's Comp Is this a Worker's Comp case?: No PFSH [facility] Disclaimer: The information contained in this section may have been updated after the patient was seen, as this information can be updated by other users. Social History Smoking Status: Current every day smoker tobacco type: cigarettes packs per day: 1 second hand exposure: Yes alcohol intake: never counseling provided: provider counseling substance use type: denies use current occupational status: employed Travel in the last 8 weeks: None household members: spouse housing: house caffeine: No ROS Obtained: Yes All systems reviewed & no additional complaints except as documented and Yes Systems reviewed as appropriate & no additional complaints except as documented Constitutional Constitutional: Reports system reviewed and no additional complaints, except as documented and Reports as per HPI Cardiovascular Cardiovascular: Reports system reviewed and no additional complaints, except as documented and Reports as per HPI Respiratory Respiratory: Reports system reviewed and no additional complaints, except as documented and Reports as per HPI Gastrointestinal Gastrointestingal: Reports system reviewed and no additional complaints, except as documented and as per HPI Musculoskeletal Musculoskeletal: Rep
[2023-01-14 12:50] VITALS: BP 133/68; PULSE 82; RESP 18; TEMP 36.9; O2SAT 98
== END 2023-01-14 12:59 | disposition home or self-care (01) ==
PROVIDERS: Emergency Provider Nurse Practitioner; PCP Nurse Practitioner Family
DX: S29.012A Strain of muscle and tendon of back wall of thorax, initial encounter (principal); S46.912A Strain of unspecified muscle, fascia and tendon at shoulder and upper arm level, left arm, initial encounter; F17.210 Nicotine dependence, cigarettes, uncomplicated; X50.1XXA Overexertion from prolonged static or awkward postures, initial encounter
CPT/HCPCS: 99212; 99214; G0463

== ENCOUNTER 2023-02-05 15:29 | Emergency (ER) | payer OTHER, SELFPAY ==
[2023-02-05 15:41] VITALS: BP 146/78; PULSE 97; RESP 18; TEMP 36.7; O2SAT 96; BMI 34.5
--- NOTE | 2023-02-05 15:46 | EXP.UTC ---
Discharge Plan Disposition Patient Disposition: Home, Self-Care Condition: Good Prescriptions Prescriptions: New fwmnmtzjaowebfm-qrufaqgah-ZU [Bromfed DM] 2-30-10 mg/5 mL Syrup 5 ml PO Q6H PRN (Reason: Cough) Qty: 240 0RF amoxicillin-pot clavulanate 875-125 mg Tablet 1 tab PO Q12H Qty: 20 0RF prednisone 10 mg tablet 10 mg PO BID 4 Days Qty: 8 0RF No Action ibuprofen 600 mg tablet 600 mg PO Q6HP PRN (Reason: Moderate Pain) Qty: 20 0RF methocarbamol 500 mg tablet 500 mg PO TID PRN (Reason: muscle spasm) Qty: 10 0RF Referrals Follow up/Referrals: Jamil Rivero MD [Primary Care Provider] - See instructions Activity Restrictions/Add. Instructions Additional Instructions/Restrictions: Drink plenty of fluids. Take tylenol or ibuprofen for pain or fever. Take the medications as directed. Follow up with your regular doctor. GO TO THE ER FOR ANY WORSENING SYMPTOMS Throw your tooth brush away and get a new one. Clinical Impressions Clinical Impression: Strep throat Stand Alone Forms Stand Alone Forms: Work/School Release Instructions Patient Instructions: Strep Throat, DI for Strep Throat Discharge ED Provider: Giovanny Pena [facility] General Stated complaint: sore throat,SENA, Body aches Mode of Arrival: Ambulatory Source of Information: Patient Limitations: No Limitations Time Seen by Provider: 02/05/23 15:46 HEENT Symptoms (Recalled from RN notes): Yes Resp Symptoms (Recalled from RN notes): No Skin Symptoms (Recalled from RN notes): No MS Symptoms (Recalled from RN notes): No Functional Status (Recalled from RN notes): wnl History of Present Illness Provider Complaint: Patient reports sore throat, headache, body aches and cold sweats since last night. Related Data Previous Rx's Medication Instructions Recorded ibuprofen 600 mg tablet 600 mg PO Q6HP PRN Moderate Pain 01/14/23 #20 tabs methocarbamol 500 mg tablet 500 mg PO TID PRN muscle spasm #10 01/14/23 tabs amoxicillin 875 mg-potassium 1 tab PO Q12H #20 tabs 02/05/23 clavulanate 125 mg tablet giqjozmghqoapwu-fwqsdoretsiyoyb-LK 5 ml PO Q6H PRN Cough #240 mL 02/05/23 2 mg-30 mg-10 mg/5 mL oral syrup (Bromfed DM) prednisone 10 mg tablet 10 mg PO BID 4 days #8 tabs 02/05/23 Allergies Allergy/AdvReac Type Severity Reaction Status Date / Time No Known Allergies Allergy Verified 07/10/22 09:04 Worker's Comp Is this a Worker's Comp case?: No PFSH PFSH Disclaimer: The information contained in this section may have been updated after the patient was seen, as this information can be updated by other users. Social History Smoking Status: Current every day smoker tobacco type: cigarettes packs per day: 1 second hand exposure: Yes alcohol intake: never counseling provided: provider counseling substance use type: denies use current occupational status: employed Travel in the last 8 weeks: None household members: spouse housing: house caffeine: No ROS Obtained: Yes All systems reviewed & no additional complaints except as documented Constitutional Constitutional: Reports chills and Reports fever(s) Eyes Eyes: Denies eye discharge ENT Ears, Nose, Mouth, and Throat: Reports as per HPI Cardiovascular Cardiovascular: Denies chest pain Respiratory Respiratory: Denies chest congestion and Reports cough Gastrointestinal Gastrointestingal: Reports nausea; Denies abdominal pain, constipation, cramping, diarrhea or vomiting Musculoskeletal Musculoskeletal: Denies arthralgias Integumentary/Breasts Skin/Breast: Denies rash Neurologic Neurologic: Denies paresthesias Physical Exam General General appearance: alert and in no apparent distress Head Head exam: atraumatic, normocephalic and normal inspection Eye Eye exam: Present normal appearance, PERRL and EOMI ENT ENT exam: Present mucous membranes moist and normal external
[2023-02-05 15:59] LABS: UTC Strep Screen (Rapid) Positive (Negative)
[2023-02-05 16:24] VITALS: BP 146/78; PULSE 97; RESP 18; TEMP 36.7; O2SAT 96
== END 2023-02-05 16:25 | disposition home or self-care (01) ==
PROVIDERS: Emergency Provider Nurse Practitioner Family; PCP Internal Medicine Adolescent Medicine
DX: J02.0 Streptococcal pharyngitis (principal); R51.9 Headache, unspecified; F17.210 Nicotine dependence, cigarettes, uncomplicated
CPT/HCPCS: 87880; 99212; 99214; G0463

== ENCOUNTER 2023-03-05 10:17 | Emergency (ER) | payer OTHER, SELFPAY ==
[2023-03-05 10:25] VITALS: BMI 27.1
--- NOTE | 2023-03-05 10:26 | XR_ITS ---
FINAL REPORT CLINICAL HISTORY: INJURY TO MIDDLE KNUCKLE FINDINGS: Right hand Three views were obtained. There is no acute fracture or dislocation. The joint spaces appear normal. No soft tissue abnormality is identified. IMPRESSION: No acute process. Reviewed, Interpreted and Dictated by Jeff Sage MD Transcribed by Priscilla Dimas Authenticated and [facility]
[2023-03-05 10:40] VITALS: BP 137/94; PULSE 66; RESP 20; TEMP 36.8; O2SAT 98; BMI 34.5
--- NOTE | 2023-03-05 10:58 | EXP.UTC ---
Discharge Plan Disposition Patient Disposition: Home, Self-Care Condition: Good Prescriptions Prescriptions: New ibuprofen [IBU] 800 mg tablet 800 mg PO Q8HP PRN (Reason: Moderate Pain) Qty: 30 0RF Referrals Follow up/Referrals: Willard Gamble JR, MD [Physician] - See instructions Jaiml Rivero MD [Primary Care Provider] - See instructions Activity Restrictions/Add. Instructions Additional Instructions/Restrictions: Rest the extremity, Elevate the extremity as tolerated while you are resting. Take ibuprofen for pain. I sent in a prescription to your pharmacy. Follow up with Dr. Gamble (orthopedics). I put in a referral but you need to call his office and schedule an appointment. Follow up with your regular doctor. GO TO THE ER FOR ANY WORSENING SYMPTOMS Clinical Impressions Clinical Impression: Hand pain, right Stand Alone Forms Stand Alone Forms: Work/School Release Instructions Patient Instructions: DI for Hand Pain Discharge ED Provider: Giovanny Pena [facility] General Stated complaint: [id number] right hand pain, home accident Time Seen by Provider: 03/05/23 10:58 History of Present Illness Provider Complaint: He states that he punched a punching bag 2 days ago. Since then he has had right hand pain. Related Data Previous Rx's Medication Instructions Recorded ibuprofen 800 mg tablet (IBU) 800 mg PO Q8HP PRN Moderate Pain 03/05/23 #30 tabs Allergies Allergy/AdvReac Type Severity Reaction Status Date / Time No Known Allergies Allergy Verified 07/10/22 09:[address] [facility] Disclaimer: The information contained in this section may have been updated after the patient was seen, as this information can be updated by other users. Medical History (Updated 03/05/23 @ 11:17 by Giovanny Pena APRN) Anxiety Depression Pulmonary embolism Social History Smoking Status: Current every day smoker tobacco type: cigarettes packs per day: 1 second hand exposure: Yes alcohol intake: never counseling provided: provider counseling substance use type: denies use current occupational status: employed Travel in the last 8 weeks: None household members: spouse housing: house caffeine: No ROS Obtained: Yes All systems reviewed & no additional complaints except as documented Constitutional Constitutional: Denies chills and Denies fever(s) Eyes Eyes: Denies eye discharge ENT Ears, Nose, Mouth, and Throat: Denies dizziness, Denies otalgia and Denies sore throat Cardiovascular Cardiovascular: Denies chest pain Respiratory Respiratory: Denies shortness of breath, Denies chest congestion, Denies cough, Denies stridor and Denies wheezing Gastrointestinal Gastrointestingal: Denies nausea or vomiting Musculoskeletal Musculoskeletal: Reports as per HPI Integumentary/Breasts Skin/Breast: Denies rash Neurologic Neurologic: Denies dizziness and Denies paresthesias Allergic/Immunologic Allergic/Immunologic: Denies wheezing Physical Exam General General appearance: alert and in no apparent distress Head Head exam: atraumatic, normocephalic and normal inspection Eye Eye exam: Present normal appearance, PERRL and EOMI ENT ENT exam: Present normal exam, normal oropharynx, mucous membranes moist, TM's normal bilaterally and normal external ear exam Neck Neck exam: Present normal inspection, full ROM and trachea midline; Absent meningismus or lymphadenopathy Chest Chest inspection: Present normal inspection and symmetric chest wall rise; Absent tenderness Respiratory Respiratory exam: Present normal lung sounds bilaterally; Absent respiratory distress Cardiovascular Cardiovascular exam: Present regular rate and normal rhythm; Absent JVD Abdominal Exam Abdominal exam: Present soft and normal bowel sounds; Absent distention, tenderness or guarding Extremities Exam Extremities exam: Present normal capillary refill; Absent calf te
[2023-03-05 11:20] VITALS: BP 137/94; PULSE 66; RESP 20; TEMP 36.8; O2SAT 98
== END 2023-03-05 11:28 | disposition home or self-care (01) ==
PROVIDERS: Emergency Provider Nurse Practitioner Family; PCP Internal Medicine Adolescent Medicine
DX: M79.641 Pain in right hand (principal); F17.210 Nicotine dependence, cigarettes, uncomplicated; F41.9 Anxiety disorder, unspecified; F32.A Depression, unspecified; W22.8XXA Striking against or struck by other objects, initial encounter
CPT/HCPCS: 73130; 99212; 99214; G0463

== ENCOUNTER → 2023-04-02 10:53 | Outpatient (CLI) | payer OTHER, SELFPAY ==
--- NOTE | 2023-04-02 10:53 | MR_ITS ---
FINAL REPORT CLINICAL HISTORY: Rt Hand Pain around 3rd mcp joint COMPARISON: None FINDINGS: Multiplanar MR imaging of the right hand was performed without contrast. The bony structures are intact without evidence of fracture or bone marrow edema. No bony mass is identified. The flexor and extensor tendons are intact. There is no evidence of bowing of the flexor tendons. The musculature is intact. No soft tissue mass or cyst is identified. There are no findings to suggest collateral ligament injury of the third MCP joint. IMPRESSION: Unremarkable MRI of the right hand with special attention to the third MCP joint. No definite bony or soft tissue abnormality is identified. Reviewed, Interpreted and Dictated by Chhaya Becerra MD Transcribed by Niyah White Authenticated and [facility]
== END ==
PROVIDERS: PCP Internal Medicine Adolescent Medicine; Visit Provider Orthopaedic Surgery
DX: S63.91XA Sprain of unspecified part of right wrist and hand, initial encounter (principal)
CPT/HCPCS: 73218

== ENCOUNTER 2023-12-17 11:17 | Emergency (ER) | payer OTHER, SELFPAY ==
[2023-12-17 11:35] VITALS: BP 136/87; PULSE 78; RESP 20; TEMP 36.7; O2SAT 96; BMI 30.8
--- NOTE | 2023-12-17 11:47 | ED_ITS ---
Discharge Plan Disposition Patient Disposition: Home, Self-Care Condition: Good Prescriptions Prescriptions: New sfpwkqczpghqebg-mwtgxeuqd-EE [Bromfed DM] 2-30-10 mg/5 mL syrup 10 ml PO Q4-6H PRN (Reason: cold symptoms/cough) Qty: 200 0RF Referrals Follow up/Referrals: Jamil Rivero MD [Primary Care Provider] - See instructions Activity Restrictions/Add. Instructions Additional Instructions/Restrictions: If symptoms persist or worsen, follow up with PCP. Clinical Impressions Clinical Impression: URI (upper respiratory infection) Qualifiers: URI type: unspecified URI Qualified Code(s): J06.9 - Acute upper respiratory infection, unspecified Stand Alone Forms Stand Alone Forms: Work/School Release Instructions Patient Instructions: DI for Viral Upper Respiratory Infection -- Adult Discharge ED Provider: Petra Talley [facility] General Stated complaint: runny nose, headache Mode of Arrival: Ambulatory Source of Information: Patient Limitations: No Limitations Time Seen by Provider: 12/17/23 11:42 Description of Symptoms (Recalled from Triage Doc. by RN): PATIENT C/O RUNNY NOSE, SORE THROAT, BODY ACHES AND COUGH SINCE YESTERDAY HEENT Symptoms (Recalled from RN notes): Yes Resp Symptoms (Recalled from RN notes): Yes Skin Symptoms (Recalled from RN notes): No MS Symptoms (Recalled from RN notes): No Functional Status (Recalled from RN notes): WNL History of Present Illness Provider Complaint: Pt reports sore throat, runny nose, cough and body aches since yesterday. He has taken Theraflu for his symptoms. He reports that his symptoms started abruptly after he got off work. Related Data Previous Rx's Medication Instructions Recorded yltneoiyteuksvu-fwzlkvaiubqulfp-PY 10 ml PO Q4-6H PRN cold 12/17/23 2 mg-30 mg-10 mg/5 mL oral syrup symptoms/cough #200 mL (Bromfed DM) Allergies Allergy/AdvReac Type Severity Reaction Status Date / Time No Known Allergies Allergy Verified 04/08/23 10:05 Worker's Comp Is this a Worker's Comp case?: No [facility] Disclaimer: The information contained in this section may have been updated after the patient was seen, as this information can be updated by other users. Medical History Anxiety Depression Pulmonary embolism Social History Smoking Status: Current every day smoker tobacco type: cigarettes packs per day: 1 second hand exposure: Yes alcohol intake: never counseling provided: provider counseling substance use type: denies use current occupational status: employed Travel in the last 8 weeks: None household members: spouse housing: house caffeine: No ROS Obtained: Yes All systems reviewed & no additional complaints except as documented Constitutional Constitutional: Reports system reviewed and no additional complaints, except as documented, Reports body ache, Reports headache(s) and Reports malaise Eyes Eyes: Reports system reviewed and no additional complaints, except as documented ENT Ears, Nose, Mouth, and Throat: Reports system reviewed and no additional complaints, except as documented, Reports headache(s), Reports nasal congestion, Reports nasal discharge and Reports sore throat Cardiovascular Cardiovascular: Reports system reviewed and no additional complaints, except as documented Respiratory Respiratory: Reports system reviewed and no additional complaints, except as documented and Reports non-productive cough Gastrointestinal Gastrointestingal: Reports system reviewed and no additional complaints, except as documented Genitourinary Male Genitourinary: Reports system reviewed and no additional complaints, except as documented Musculoskeletal Musculoskeletal: Reports system reviewed and no additional complaints, except as documented Integumentary/Breasts Skin/Breast: Reports system reviewed and no additional complaints, except as documented Neurologic Neurologic: Reports system reviewed and no additional complaints, except as documented and Reports headache(s) Endocrine Endocrine: Reports system reviewed and no additional complaints, except as documented Hematologic/Lymphatic Henatologic/Lymphatic: Reports system reviewed and no additional complaints, except as documented Allergic/Immunologic Allergic/Immunologic: Reports system reviewed and no additional complaints, except as documented Physical Exam General General appearance: alert Comment: ill appearing Head Head exam: atraumatic and normocephalic Eye Eye exam: Present normal appearance Expanded ENT Exam External ear exam: Present normal external inspection Nasal speculum exam: Bilateral: other (edematous mucosa with clear drainage no minerva) Mouth exam: Present normal external inspection Teeth exam: Present normal inspection Throat exam: Present normal inspection Neck Neck exam: Present normal inspection Chest Chest inspection: Present normal inspection and symmetric chest wall rise Respiratory Respiratory exam: Present normal lung sounds bilaterally Cardiovascular Cardiovascular exam: Present regular rate and normal rhythm Abdominal Exam Abdominal exam: Present soft and normal bowel sounds Back Exam Back exam: Present normal inspection Neurological Exam Neurological exam: Present alert and oriented X3 Psychiatric Psychiatric exam: Present normal affect and normal mood Skin Skin exam: Present warm, dry and intact Medical Decision Making Cade Inquiry Pt receiving controlled substance: No Cade was queried for this patient: No Vital Signs: 12/17/23 11:35 Temperature 98.1 F Temperature Source Oral Pulse Rate [Left Brachial] 78 Respiratory Rate 20 Blood Pressure [Left Arm] 136/87 Blood Pressure Mean [Left Arm] 103 Blood Pressure Source [Left Arm] Automatic Cuff Blood Pressure Position [Left Arm] Sitting 02 Sat by Pulse Oximetry 96 Oxygen Delivery Method Room Air Lab Data Lab results reviewed: Yes I reviewed the patient's lab results.
[2023-12-17 11:58] LABS: UTC Strep Screen (Rapid) Negative (Negative)
[2023-12-17 11:59] LABS: UTC Influenza A Antigen Negative (Negative); UTC Influenza B Antigen Negative (Negative)
[2023-12-17 12:04] VITALS: BP 136/87; PULSE 78; RESP 20; TEMP 36.7; O2SAT 96
== END 2023-12-17 12:09 | disposition home or self-care (01) ==
PROVIDERS: Emergency Provider Nurse Practitioner Family; PCP Internal Medicine Adolescent Medicine
DX: R05.9 Cough, unspecified (principal); R07.0 Pain in throat; J06.9 Acute upper respiratory infection, unspecified; B34.9 Viral infection, unspecified
CPT/HCPCS: 87635; 87804; 87880; 99212; 99214; G0463

== ENCOUNTER 2024-08-06 17:24 | Emergency (ER) | payer OTHER, SELFPAY ==
--- NOTE | 2024-08-06 17:26 | XR_ITS ---
PROCEDURE INFORMATION: Exam: XR Right Hand Exam date and time: 08/06/2024 6:01 PM Age: 34 years old Clinical indication: Injury or trauma; Other: Smashed index finger; Other: Pain TECHNIQUE: Imaging protocol: Radiologic exam of the right hand. Views: 3 or more views. COMPARISON: MR HAND RT WO CON 04/02/2023 11:17 AM FINDINGS: Bones/joints: Small slightly displaced index finger distal phalanx medial tuft fracture. Soft tissues: Unremarkable. IMPRESSION: Small slightly displaced index finger distal phalanx medial tuft fracture.
[2024-08-06 17:35] VITALS: BP 131/83; PULSE 74; RESP 17; TEMP 36.7; O2SAT 98; BMI 32.9
--- NOTE | 2024-08-06 17:45 | ED_ITS ---
Discharge Plan Disposition Patient Disposition: Home, Self-Care Condition: Good Prescriptions Prescriptions: No Action kbqrcpilzbaumgd-czfexjbtd-SC [Bromfed DM] 2-30-10 mg/5 mL syrup 10 ml PO Q4-6H PRN (Reason: cold symptoms/cough) Qty: 200 0RF Referrals Follow up/Referrals: Codey Benítez DO [Staff Physician] - See instructions Jamil Rivero MD [Primary Care Provider] - See instructions Activity Restrictions/Add. Instructions Additional Instructions/Restrictions: Follow up with Hand or Orthopedics Dr Benítez for further evaluation and examination *RICE, Rest the extremity, Ice 15-20 minutes 3-4 times daily, Compress- wear the kayla wrap as discussed as much as possible to help reduce swelling and pain, Elevate the extremity when at rest *FInger splint is for support and help control swelling, Be sure that is not to tight but not to loose either wear to protect finger *Elevate when resting? *Ibuprofen 600-800mg every 6-8 hours as needed for pain an inflammation. If need something more can take Tylenol in between doses of Ibuprofen to help Immediately follow up with your family doctor for new or worsening of symptoms, or no noticeable improvement over the next 3-5 days Follow up with Clinical Impressions Clinical Impression: Closed fracture of tuft of distal phalanx of finger Stand Alone Forms Stand Alone Forms: Work/School Release Instructions Patient Instructions: How To Perform RICE (Rest, Ice, Compress, Elevate), Ibuprofen Print Language Print Language: Jamaican Discharge ED Provider: Elizabet Hernandes [facility] [place] HPI General Stated complaint: AO 08/06/24 1200 mashed right index finger Mode of Arrival: Ambulatory Source of Information: Patient Limitations: No Limitations Time Seen by Provider: 08/06/24 17:45 Description of Symptoms (Recalled from Triage Doc. by RN): PATIENT STATES HE SMASHED HIS RIGHT INDEX FINGER IN A METAL PRESS YESTERDAY HEENT Symptoms (Recalled from RN notes): No Resp Symptoms (Recalled from RN notes): No Skin Symptoms (Recalled from RN notes): No MS Symptoms (Recalled from RN notes): Yes Functional Status (Recalled from RN notes): WNL History of Present Illness Provider Complaint: Pt states that he smashed his right index finger yesterday on metal press and then bumped it again today at work so he came in to get it checked because it felt sore States that he has been bending it and using the finger but it felt more sore today Related Data Previous Rx's ?Medication ?Instructions ?Recorded yowirwcaaulvpxa-kxxklixytcaeijo-JF 10 ml PO Q4-6H PRN cold 12/17/23 2 mg-30 mg-10 mg/5 mL oral syrup symptoms/cough #200 mL (Bromfed DM) Allergies Allergy/AdvReac Type Severity Reaction Status Date / Time No Known Allergies Allergy Verified 04/08/23 10:05 Worker's Comp Is this a Worker's Comp case?: No [facility] Disclaimer: The information contained in this section may have been updated after the patient was seen, as this information can be updated by other users. Medical History Anxiety Depression Pulmonary embolism Social History Smoking Status: Current every day smoker tobacco type: cigarettes packs per day: 1 second hand exposure: Yes alcohol intake: never counseling provided: provider counseling substance use type: denies use current occupational status: employed Travel in the last 8 weeks: None household members: spouse housing: house caffeine: No Have you lived/traveled outside [place] in past 30 days?: No Contact w/someone who lives/traveled outside [place] past 30 days?: No Exposure to someone with infectious disease in past 14 days?: No Do you have a fever (greater than 100.4 F or 38 C)?: No Have you tested positive for COVID-19: No Exposed to someone with COVID-19 in past 14 days?: No Do you have a sore throat?: No Do you have a cough?: No Do you have any weakness?: No Do you have any diarrhea?: No Are you experiencing any unusual bleeding?: No Do you have any muscle aches/pain?: No Do you have any abdominal pain?: No Are you experiencing loss of taste or smell?: No ROS Obtained: Yes All systems reviewed & no additional complaints except as documented and Yes Systems reviewed as appropriate & no additional complaints except as documented Constitutional Constitutional: Reports system reviewed and no additional complaints, except as documented and Reports as per HPI Eyes Eyes: Reports system reviewed and no additional complaints, except as documented and Reports as per HPI ENT Ears, Nose, Mouth, and Throat: Reports system reviewed and no additional complaints, except as documented and Reports as per HPI Cardiovascular Cardiovascular: Reports system reviewed and no additional complaints, except as documented and Reports as per HPI Respiratory Respiratory: Reports system reviewed and no additional complaints, except as documented and Reports as per HPI Gastrointestinal Gastrointestingal: Reports system reviewed and no additional complaints, except as documented and as per HPI Musculoskeletal Musculoskeletal: Reports system reviewed and no additional complaints, except as documented, Reports as per HPI and Reports other (Pain and tenderness right index finger after smashing it yesterday and toda) Physical Exam General General appearance: alert and in no apparent distress Respiratory Respiratory exam: Present normal lung sounds bilaterally; Absent respiratory distress or wheezes Cardiovascular Cardiovascular exam: Present regular rate, normal rhythm and irregular rhythm Expanded Upper Extremity Exam Right: Hand L/R back image: 2 1. report tenderness, mild bruising noted 2. small abrasion noted Neurological Exam Neurological exam: Present alert, oriented X3 and normal gait Medical Decision Making Medical Records Screening: Per USPSTF and CDC recommendations, given the prevalence of disease in our region, it is our hospital?s policy to screen for HIV and viral Hepatitis for all patients aged 18 and over and those with ongoing risk factors. Cade Inquiry Pt receiving controlled substance: No Cade was queried for this patient: No Vital Signs: 08/06/24 17:35 Temperature 98.1 F Temperature Source Oral Pulse Rate [Left Brachial] 74 Respiratory Rate 17 Blood Pressure [Left Arm] 131/83 Blood Pressure Mean [Left Arm] 99 Blood Pressure Source [Left Arm] Automatic Cuff Blood Pressure Position [Left Arm] Sitting 02 Sat by Pulse Oximetry 98 Oxygen Delivery Method Room Air Orders (Tests/Meds): ORDERS Category Date Time Status XR hand RT min 3V Stat Exams 08/06/24 17:26 Ordered Radiology Data #1: Image(s): Hand Image Reviewed: Yes I have reviewed radiologist's interpretation IMPRESSION: Small slightly displaced index finger distal phalanx medial tuft fracture.
[2024-08-06 19:19] VITALS: BP 131/83; PULSE 74; RESP 17; TEMP 36.7; O2SAT 98
== END 2024-08-06 19:27 | disposition home or self-care (01) ==
PROVIDERS: Emergency Provider Nurse Practitioner; PCP Internal Medicine Adolescent Medicine
DX: S62.630A Displaced fracture of distal phalanx of right index finger, initial encounter for closed fracture (principal); W23.0XXA Caught, crushed, jammed, or pinched between moving objects, initial encounter
CPT/HCPCS: 73130; 99213; G0381